=== PATIENT | male | born 1975 | race Caucasian/White ===

== ENCOUNTER 2024-04-25 17:05 | Emergency (ER) | payer OTHER, SELFPAY ==
--- NOTE | ~2024-04-25 | XR_ITS ---
CLINICAL HISTORY: pain Four views of the left shoulder. COMPARISON: None FINDINGS: Proximal left humerus, the left scapula, and the left clavicle appear intact. Humeral head is appropriately seated in the glenoid. Mild hypertrophy of the left acromioclavicular joint. Visualized portions of the left lung are clear. IMPRESSION: 1. No radiographic evidence of acute injury to the left shoulder. This document has been electronically signed by: Srikanth Balderas MD on 04/25/2024 17:52:52
[2024-04-25 17:09] VITALS: BP 140/81; PULSE 81; RESP 18; TEMP 35.7; O2SAT 98; BMI 35.3
--- NOTE | 2024-04-25 17:09 | ED_ITS ---
HPI - General Adult General Chief complaint: Extremity Injury, Upper Stated complaint: left shoulder pain Time Seen by Provider: 04/25/24 18:05 Source: patient, RN notes reviewed and old records reviewed Mode of arrival: ambulatory Limitations: no limitations History of Present Illness ED Provider: Lexx VASQUEZ narrative: 49-year-old male presents for evaluation of left shoulder pain. He reports his pain has been present for the last 3 days. His pain started the day after he was exercising. He reports that he was lifting heavy weights and focusing on shoulders the day before his pain started. He did not feel any specific pop, tear, or injury. His pain is 6/10 but does occasionally she had up to 10/10 Related Data Previous Rx's ?Medication ?Instructions ?Recorded cyclobenzaprine 10 mg tablet 10 mg PO TID PRN muscle spasm #20 04/25/24 tabs oxycodone 5 mg tablet 5 mg PO Q6H PRN pain #16 tabs 04/25/24 Allergies Allergy/AdvReac Type Severity Reaction Status Date / Time No Known Allergies Allergy Verified 04/25/24 17:13 [No Known Allergies*] Review of Systems Constitutional: Constitutional: Denies body ache(s), Denies fever(s) and Denies frequent falls Musculoskeletal: Musculoskeletal: Reports arthralgias, Reports joint swelling, Reports limited range of motion, Denies loss of height, Reports muscle cramps, Denies muscle weakness, Reports radiating pain into limb and Reports stiffness Integumentary/Breasts: Skin/Breast: Denies rash Neurologic: Denies frequent falls Psychiatric: Psychiatric: Denies anxiety PMFSH Social History Social History Advance Directives: No Advance Directives Information Provided: Yes Physical Exam ED Vital Signs: Vital Signs - 24 hr 04/25/24 17:09 Temperature 96.3 F L Pulse Rate 81 Respiratory Rate 18 Blood Pressure 140/81 H Pulse Oximetry 98 Oxygen Delivery Method Room Air BMI result Body Mass Index 35.3 Const General: healthy appearing, comfortable, no acute distress, alert and awake Nutritional Appearance: well nourished Orientation/consciousness: patient oriented x3 HENMT Head: Yes normocephalic and Yes atraumatic Eyes Eyelids: Yes eyelids normal Conjunctivae: conjunctivae normal Sclerae: sclerae normal Corneas: corneas normal Pupils: Equal, round and reactive pupils present EOM: EOMs intact bilaterally Neck Neck: Yes full ROM Resp Effort & Inspection: normal respiratory effort, able to speak in complete sentences and not labored Skin General skin exam: elasticity normal Neuro General: patient oriented x3 Cranial nerves: Yes Equal, round and reactive pupils present and Yes Bilaterally intact EOM present Cognition (Neuro): normal cognition Extrem Other: No visible or palpable deformity to the left shoulder. The patient has vague tenderness to the left shoulder globally but exquisite tenderness along the biceps tendon. There is no bulging mass at the proximal biceps tendon. The patient has pain with extension and flexion of the biceps. Course Course Course Narrative: RME, this is a rapid medical exam performed by Ha Hallman please refer to primary provider for complete H&P- 49 year old male presents for evaluation of left shoulder pain. His pain started after working out. He did not have any sharp pains during his exercise, but rather the pain started the following day. Plan for left shoulder x-ray Medications Administered Discontinued Medications Generic Name Dose Route Start Last Admin Trade Name Freq PRN Reason Stop Dose Admin Ketorolac Tromethamine 30 mg 04/25/24 18:03 04/25/24 18:11 Ketorolac Tromethamine 30 Mg/Ml Vial IM 04/25/24 18:04 30 mg ONCE ONE Administration Medical Decision Making Medical Decision Making MDM Narrative: 49-year-old male presents for evaluation of left shoulder pain/left upper extremity pain after working out a few days ago. He did not have any sharp pain while working out, there was no specific injury. His pain developed the next day and worsened. He reports yesterday the pain was more comfortable away from the body and today is most comfortable close of the body. x-rays negative for fracture. Exam is most consistent with a biceps injury but not a complete rupture. The patient will be placed in a sling and referred to Orthopedics Differential Diagnosis Differential Diagnoses: The differential diagnosis associated with the presentation includes biceps tendon injury Biceps tendon rupture Muscle strain Shoulder sprain Dislocation tendonitis Independent Interpretation I performed an independent interpretation of an: Plain X-Ray Interpretation: I agree with radiology interpretation Radiology Impression Discussion of test interpretation with radiology: I have reviewed the r adiologist's reading. Radiologist Impression: FINDINGS: Proximal left humerus, the left scapula, and the left clavicle appear intact. Humeral head is appropriately seated in the glenoid. Mild hypertrophy of the left acromioclavicular joint. Visualized portions of the left lung are clear. IMPRESSION: 1. No radiographic evidence of acute injury to the left shoulder. This document has been electronically signed by: Srikanth Balderas MD on 04/25/2024 17:52:52 Discharge Plan Discharge Clinical Impression: Acute pain of left shoulder Patient Disposition: Home, Self-Care Instructions: Shoulder Pain (ED) Additional Instructions: your shoulder x-ray was negative, you have no fracture or arthritis. Your exam is most consistent with a biceps tendon injury but does not appear to be ruptured you may use ibuprofen/ Tylenol for pain. You may use oxycodone for more severe, breakthrough pain. Take cyclobenzaprine as needed for muscle spasms. These medications may make you drowsy, do not drink alcohol or drive after taking them. I recommend that you follow up with Orthopedics, call tomorrow to schedule an appointment Prescriptions: New oxycodone 5 mg tablet 5 mg PO Q6H PRN (Reason: pain) Qty: 16 0RF Rx Instructions: Partial Fill upon patient request. cyclobenzaprine 10 mg tablet 10 mg PO TID PRN (Reason: muscle spasm) Qty: 20 0RF Referrals: Mikie Omer MD [Physician] - (left shoulder pain) Print Language: French
[2024-04-25] MEDS: Ketorolac Tromethamine 30 MG/ML VIAL IM (18:11)
[2024-04-25 18:20] VITALS: BP 140/81; PULSE 81; RESP 18; TEMP 35.7; O2SAT 98
--- OUTSIDE RECORDS SUMMARY | 2024-04-25 20:02 | XMS_ITS | Clinical Summary ---
Author Organization [facility] Address [address] [place] [address] Care Team Providers Care Warehouse Foreman Name Role Phone Ryan Umanzor MD Primary Care Provider [phone] Allergies No known active allergies Medications lisinopril (PRINIVIL, ZESTRIL) 20 MG tablet TAKE 1 TABLET BY MOUTH EVERY DAY 1 Active desonide (DESOWEN) 0.05 % creamIndication s:Contact Dermatitis Apply twice daily for 1 week Indications: Contact Dermatitis 30 g 1 Active Social History Tobacco Use Types Packs/Day Years Used Date Smoking Tobacco: Never Smokeless Tobacco: Never Alcohol Use Standard Drinks/Week Comments Yes 0 (1 standard drink = 0.6 oz pur e alcohol) Sex and Gender Information Value Date Recorded Sex Assigned at Not on file Legal Sex Male 19:29 EDT Gender Identity Not on file Sexual Orientation Not on file Last Filed Vital Signs Vital Sign Reading Time Taken Comments Blood Pressure 128/62 11/04/2020 1028 EDT Pulse 77 11/04/2020 1028 EDT Temperature 36.7 ??C (98 ??F) 11/04/2020 1028 EDT Respiratory Rate 18 11/04/2020 1028 EDT Oxygen Saturation 97% 11/04/2020 1028 EDT Inhaled Oxygen Concentration - - Weight 130.3 kg (287 lb 4.2 oz) 11/04/2020 0958 EDT Height 182.9 cm (6' 0.01 ) 11/04/2020 0958 EDT Body Mass Index 38.95 11/04/2020 0958 EDT Plan of Treatment Not on file Insurance [facility] [place] Care Teams Warehouse Foreman Relationship Specialty Start Date End Date Ryan Umanzor MD [address] [place] [address] [id number] [place] [address] PCP - General Gastroenterology 08/27/20
== END 2024-04-25 18:41 | disposition home or self-care (01) ==
PROVIDERS: Emergency Provider Internal Medicine
DX: M25.512 Pain in left shoulder (principal)
CPT/HCPCS: 73030; 96372; 99283; 99284; J1885

== ENCOUNTER → 2024-04-25 17:09 | Outpatient (BNV) | payer SELFPAY | PROVIDERS: Visit Provider Radiology Diagnostic Radiology | DX: M89.312 Hypertrophy of bone, left shoulder (principal) | CPT/HCPCS: 73030 ==